=== PATIENT | female | born 1940 | race Caucasian/White ===

== ENCOUNTER 2016-10-19 15:45 | Emergency (ER) | payer OTHER, MEDICARE ==
[2016-10-19 16:23] VITALS: BP 152/94; PULSE 88; TEMP 97.9; BMI 19.0
--- NOTE | 2016-10-19 16:27 | PDOC ---
History of Present Illness - General History Source: Patient Exam Limitations: No Limitations - History of Present Illness Initial Comments: 10/19/16 16:39 Patient is a 76 year old female with a significant past medical history of hypertension, hyperlipidemia, and RHD at 5 years old, who presents to the emergency department complaining of a tick on her left upper arm. Patient states she discovered the tick this morning, which was embedded in her left arm. She states she went to wash her arm, but the tick withdrew itself. She states [place], where she thinks the tick latched on to her. <Néstor Maurer - Last Filed: 10/19/16 16:54> - General History Source: Patient Exam Limitations: No Limitations <Paulina Monteiro - Last Filed: 10/19/16 18:51> - General Chief Complaint: Bite Stated Complaint: TICK BITE LEFT UPPER ARM Time Seen by Provider: 10/19/16 16:17 Past History <Néstor Maurer - Last Filed: 10/19/16 16:54> - Past Medical History HTN: Yes Hypercholesterolemia: Yes Other medical history: FX RIGHT FEMUR - Psycho/Social/Smoking Cessation Hx Anxiety: Yes Suicidal Ideation: No Smoking History: Former smoker Have you smoked in the past 12 months: No Information on smoking cessation initiated: No Hx Alcohol Use: No Drug/Substance Use Hx: No Substance Use Type: None Hx Substance Use Treatment: No <Paulina Monteiro - Last Filed: 10/19/16 18:51> - Past Medical History Allergies/Adverse Reactions: Allergies Allergy/AdvReac Type Severity Reaction Status Date / Time No Known Allergies Allergy Unverified 05/04/16 12:02 Home Medications: Ambulatory Orders Estradiol [Divigel] 0.5 mg TD DAILY 03/25/16 Levomilnacipran HCl [Fetzima] 40 mg PO HS 03/25/16 Acetaminophen [Tylenol .Regular Strength -] 650 mg PO Q6H PRN #0 tablet Docusate Sodium [Colace -] 100 mg PO Q8H PRN #0 capsule 03/29/16 Mag Hydrox/Al Hydrox/Simeth [Mylanta Oral Suspension -] 30 ml PO Q4H PRN #0 cup 03/29/16 Multivitamins [Multivit ([facility] Formulary)] 1 tab PO DAILY tab 03/29/16 Patient's Own Medication [Patient's Own Med (Nf) -] 1 each PO DAILY med Sennosides/Docusate Sodium [Pericolace -] 1 tablet PO BID tablet 03/29/16 Aspirin [Aspirin EC] 81 mg PO DAILY 05/04/16 Temazepam [Restoril] 15 mg PO HS 05/04/16 Atorvastatin Ca [Lipitor] 20 mg PO HS 10/19/16 Diazepam [Valium] 5 mg PO DAILY PRN 10/19/16 Doxycycline Hyclate [Vibramycin -] 100 mg PO BID #20 capsule 10/19/16 Fluconazole [Diflucan -] 150 mg PO ONCE PRN #1 tablet 10/19/16 Melatonin 3 mg PO HS 10/19/16 Nebivolol HCl [Bystolic] 2.5 mg PO HS 10/19/16 Review of Systems - Review of Systems Able to Perform ROS?: Yes Comments:: 10/19/16 16:39 GENERAL/CONSTITUTIONAL: No: fever, chills, weakness, loss of appetite. HEAD, EYES, EARS, NOSE AND THROAT: No: change in vision, ear pain, discharge, sore throat, throat swelling. CARDIOVASCULAR: No: chest pain, lightheadedness, palpitations, syncope RESPIRATORY: No: cough, shortness of breath, wheezing, hemoptysis, stridor. GASTROINTESTINAL: No: nausea, vomiting, abdominal cramping, diarrhea, rectal bleeding, constipation. GENITOURINARY: No: dysuria, hematuria, frequency, urgency, flank pain. MUSCULOSKELETAL: No: back pain, neck pain, joint pain, muscle swelling or pain SKIN AND BREASTS: + Tick on her left upper arm. No: lesions, pallor, easy bruising. NEUROLOGIC: No: headache, vertigo, paresthesias, weakness ENDOCRINE: No: unexplained weight gain or loss HEMATOLOGIC/LYMPHATIC: No: anemia, easy bleeding, swelling nodes <Néstor Maurer - Last Filed: 10/19/16 16:54> *Physical Exam - Vital Signs Last Vital Signs Temp Pulse Resp BP Pulse Ox 97.9 F 88 16 152/94 97 10/19/16 16:05 10/19/16 16:05 10/19/16 16:05 10/19/16 16:05 10/19/16 16:05 - Physical Exam Comments: 10/19/16 16:39 GENERAL: The patient is in no acute distress. HEAD: Normal with no signs of trauma. EYES: PERRLA, EOMI, sclera anicteric, conjunctiva clear. ENT: Ears normal, nares patent, oropharynx clear without exudates. Moist mucous membranes. NECK: Normal range of motion, supple without lymphadenopathy, JVD, or masses. LUNGS: Breath sounds equal, clear to auscultation bilaterally. No wheezes, and no crackles. HEART:Regular rate and rhythm, normal S1 and S2 without murmur, rub or gallop. ABDOMEN: Soft, nontender, normoactive bowel sounds. No guarding, no rebound. EXTREMITIES: Normal range of motion, no edema. No clubbing or cyanosis. No erythema, or tenderness. NEUROLOGICAL: Cranial nerves II through XII grossly intact. Normal speech. No focal neurological deficits. MUSCULOSKELETAL: Back non-tender to palpation, no CVA tenderness SKIN: Warm, Dry, normal turgor, no rashes or lesions noted. <Néstor Maurer - Last Filed: 10/19/16 16:54> - Vital Signs Last Vital Signs Temp Pulse Resp BP Pulse Ox 97.9 F 88 16 152/94 97 10/19/16 16:05 10/19/16 16:05 10/19/16 16:05 10/19/16 16:05 10/19/16 16:05 <Paulina Monteiro - Last Filed: 10/19/16 18:51> Medical Decision Making - Medical Decision Making 10/19/16 16:27 A portion of this note was documented by scribe services under my direction. I have reviewed the details of the note, within reason, and agree with the documentation with the following case summary and management plan written by me. Nursing documentation reviewed and incorporated into medical decision making 10/19/16 18:24 This is a 76 yo F with a history of hypertension, hyperlipidemia, and Rheumatic Heart Disease at age 5 Pt presents to the ER today with a complaint of possible tick bite Pt states she awoke at 3am and noted a raised area on her left upper arm that was pruritic She thought actually it was a skin tag BUt when it moved a bit, she decided to leave it alone Today, she looked at the area and noticed that it actually is a tick The tick was engorged and basically fell off (or was easily removed) Pt brought the tick to the ER for evaluation It appears to be a deer tick Pt can not remember if she had had any pertinent exposures She did walk [facility] [employer] [facility] to the [facility], but this was last week (and she had no symptoms after this) She does sleep with her dog but her dog does not roam off leash [place] It is difficult to estimate the length of time that tick was there Pt has no symptoms at this time She has a local reaction (approximately 1cm in diameter) around the bite 10/19/16 18:25 BAsed on ISDA guidelines, pt can be given Doxy 200mg as a single dose Baseline Lyme Titers drawn Pt will be following up with her PMD on Friday I have asked her to have her PMD re assess the site Will prescribe Diflucan to be taken if needed for candidiasis <Paulina Monteiro - Last Filed: 10/19/16 18:51> *DC/Admit/Observation/Transfer - Attestations Scribe Attestion: 10/19/16 16:40 Documentation prepared by Néstor Maurer, acting as medical front desk coordinator for Paulina Monteiro MD. <Néstor Maurer - Last Filed: 10/19/16 16:54> - Discharge Dispostion Admit: No <Paulina Monteiro - Last Filed: 10/19/16 18:51> Diagnosis at time of Disposition: Tick bite Qualifiers: Encounter type: initial encounter Qualified Code(s): W57.XXXA - Bitten or stung by nonvenomous insect and other nonvenomous arthropods, initial encounter - Discharge Dispostion Disposition: HOME Condition at time of disposition: Good - Prescriptions Prescriptions: Fluconazole [Diflucan -] 150 mg PO ONCE PRN #1 tablet PRN Reason: yeast infection Doxycycline Hyclate [Vibramycin -] 100 mg PO BID #20 capsule - Patient Instructions Printed Discharge Instructions: How to Remove a Tick Additional Instructions: Joao Nguyen Thank you for coming in to the ER today We have given you a preventative dose of doxycycline today I have also given you a prescription for Doxycycline 100 mg twice per day You can start that tomorrow Keep your appointment with your Primary Care Physician on Friday We will have your Lyme Titer results before your appointment Please call for your results You can hop picker the prescription for Diflucan if you develop symptoms of a Yeast Infection Return to the ER for any other concerns or complaints
[2016-10-19] MEDS ORDERED: DOXYCYCLINE HYCLATE 100 MG CAPSULE PO ONE ×2 (16:36→16:49)
== END 2016-10-19 17:29 | disposition home or self-care (01) ==
LOC: FER 15:45
DX: S40.862A Insect bite (nonvenomous) of left upper arm, initial encounter (principal); W57.XXXA Bitten or stung by nonvenomous insect and other nonvenomous arthropods, initial encounter; Y93.9 Activity, unspecified; Y92.89 Other specified places as the place of occurrence of the external cause; I10 Essential (primary) hypertension; E78.5 Hyperlipidemia, unspecified; Z87.891 Personal history of nicotine dependence
CPT/HCPCS: 36415; 86618; 99281-25

== ENCOUNTER 2019-05-20 19:17 | Emergency (ER) | payer OTHER, MEDICARE ==
[2019-05-20 19:24] VITALS: BP 173/102; PULSE 88; TEMP 98.3; BMI 21.4
[2019-05-20 19:40] LABS: EPITHELIAL CELLS FEW /hpf
[2019-05-20] MEDS ORDERED: NITROFURANTOIN MACROCRYSTAL 50 MG CAPSULE (FP) PO SCH (19:45)
--- NOTE | 2019-05-20 19:46 | PDOC ---
Documentation entered by Radha Reynolds SCRIBE, acting as scribe for Wil Cee MD. Wil Cee MD: This documentation has been prepared by the Rodolfo hernandez Brenda, SCRIBE, under my direction and personally reviewed by me in its entirety. I confirm that the documentation accurately reflects all work , treatment, procedures, and medical decision making performed by me. History of Present Illness - General Chief Complaint: Urinary Problem Stated Complaint: FREQUENCY/URGENCY Time Seen by Provider: 05/20/19 19:20 History Source: Patient Exam Limitations: No Limitations - History of Present Illness Initial Comments: 05/20/19 19:45 The patient is a 78 year old female, with a significant PMH of HTN, HLD and TIA who presents to the emergency department with 2-3 weeks of progressively worsening urinary frequency and urgency. Patient reports that her urinary frequency and urgency has been waking her up at night, causing her to feel exhausted during the day. The patient denies chest pain, shortness of breath, headache and dizziness. Denies fever, chills, nausea, vomiting, diarrhea and constipation. Denies dysuria and hematuria. PAST MEDICAL HISTORY: HTN, HLD, and TIA. PAST SURGICAL HISTORY: no significant history reported FAMILY HISTORY: no pertinent history SOCIAL HISTORY: Pt lives with family. Drinks 2 glasses of alcohol per day. General: (+) Feeling tired. No fevers or chills, no weakness, no weight loss HEENT: No change in vision. No sore throat,. No ear pain CardioVascular: No chest pain or shortness of breath Respiratory:No cough, or wheezing. Gastrointestinal: no nausea, vomiting, diarrhea or constipation, No rectal bleeding Genitourinary: (+) Frequency (+) Urgency. No dysuria, hematuria. Musculoskeletal: No joint or muscle pain or swelling Neurologic: No headache, vertigo, dizziness or loss of consciousness Psychiatric: nor depression Skin: No rashes or easy bruising Endocrine: no increased thirst or abnormal weight change Allergic: no skin or latex allergy All other systems reviewed and normal GENERAL: The patient is awake, alert, and fully oriented, in no acute distress. HEAD: Normal with no signs of trauma. EYES: Pupils equal, round and reactive to light, extraocular movements intact, sclera anicteric, conjunctiva clear. EXTREMITIES: Normal range of motion, no edema. NEUROLOGICAL: Normal speech, normal gait. PSYCH: Normal mood, normal affect. SKIN: Warm, Dry, normal turgor, no rashes or lesions noted. This is a 78-year-old female who comes in complaining of frequency and dysuria and increased fatigue. Patient's urine is positive for urinary tract infection. Patient started on Macrobid given first dose here and a prescription. Patient does have a primary care doctor that she can follow-up with. Patient was instructed to call her primary care doctor in the morning and get an appointment for 2 to 3 days at weight if she still is having fatigue she can follow-up with her primary care doctor. Past History - Past Medical History Allergies/Adverse Reactions: Allergies Allergy/AdvReac Type Severity Reaction Status Date / Time No Known Allergies Allergy Unverified 05/04/16 12:02 Home Medications: Ambulatory Orders Estradiol [Divigel] 0.5 mg TD DAILY 03/25/16 Levomilnacipran HCl [Fetzima] 40 mg PO HS 03/25/16 Docusate Sodium [Colace -] 100 mg PO Q8H PRN #0 capsule 03/29/16 Multivitamins [Multivit ([facility] Formulary)] 1 tab PO DAILY tab 03/29/16 Aspirin [Aspirin EC] 81 mg PO DAILY 05/04/16 Atorvastatin Ca [Lipitor] 20 mg PO HS 10/19/16 Diazepam [Valium] 5 mg PO DAILY PRN 10/19/16 Acetaminophen [Tylenol .Regular Strength -] 325 mg PO Q6H PRN 01/24/18 Nitrofurantoin Macrocrystal [Macrodantin] 100 mg PO BID #30 capsule 05/20/19 COPD: No HTN: Yes Hypercholesterolemia: Yes - Psycho Social/Smoking Cessation Hx Smoking History: Unknown if ever smoked Have you smoked in the past 12 months: No Information on smoking cessation initiated: No Hx Alcohol Use: Yes (2 GLASSES PER DAY) Drug/Substance Use Hx: No Substance Use Type: None Hx Substance Use Treatment: No *Physical Exam - Vital Signs Last Vital Signs Temp Pulse Resp BP Pulse Ox 98.3 F 88 18 173/102 H 98 05/20/19 19:18 05/20/19 19:18 05/20/19 19:18 05/20/19 19:18 05/20/19 19:18 ED Treatment Course - ADDITIONAL ORDERS Additional order review: Laboratory Results 05/20/19 19:15 Urine Color Yellow Urine Appearance Clear Urine pH 5.5 Urine Protein Negative Urine Glucose (UA) Negative Urine Ketones Trace Urine Blood Trace-intact Urine Nitrite Negative Urine Bilirubin 1+ H Urine Urobilinogen 0.2 Ur Leukocyte Esterase 2+ Urine RBC 0-2 Urine WBC 2-5 Ur Transition Epith Cell Few Urine Bacteria Few Discharge - Discharge Information Problems reviewed: Yes Clinical Impression/Diagnosis: Cystitis Condition: Stable - Admission No - Additional Discharge Information Prescriptions: Nitrofurantoin Macrocrystal [Macrodantin] 100 mg PO BID #30 capsule - Follow up/Referral Referrals: Gadiel Cage MD [Primary Care Provider] - - Patient Discharge Instructions Additional Instructions: Your urine shows that you have an infection in your urine for which she will need to take antibiotics.. Take Macrobid 1 tablet twice a day for 10 days Return to the emergency department immediately with ANY new, persistent or worsening symptoms. Continue any medications as previously prescribed by your physician. You should follow up with your primary doctor as soon as possible regarding today's emergency department visit. . Please make sure your doctor reviews the results of your emergency evaluation. Thank you for coming to the Emergency Department today for your care. It was a pleasure to see you today. Please note that your evaluation is INCOMPLETE until you follow-up with your doctor. - Post Discharge Activity
[2019-05-20] MEDS ORDERED: NITROFURANTOIN MACROCRYSTAL 50 MG CAPSULE (FP) ONE (19:48)
== END 2019-05-20 20:03 | disposition home or self-care (01) ==
LOC: FER 19:17
DX: N30.00 Acute cystitis without hematuria (principal); I10 Essential (primary) hypertension; E78.5 Hyperlipidemia, unspecified; Z86.73 Personal history of transient ischemic attack (TIA), and cerebral infarction without residual deficits; Z79.82 Long term (current) use of aspirin
CPT/HCPCS: 81003; 81015; 87086; 99282-25

== ENCOUNTER 2019-05-31 19:56 | Emergency (ER) | payer OTHER, MEDICARE ==
[2019-05-31 20:15] VITALS: BP 183/91; PULSE 87; TEMP 99; BMI 21.1
--- NOTE | 2019-05-31 22:34 | PDOC ---
Documentation entered by Kusum Davis SCRIBE, acting as scribe for Manuel Cook MD. Manuel Cook MD: This documentation has been prepared by the Ryan hernandez Aiswarya, SCRIBE, under my direction and personally reviewed by me in its entirety. I confirm that the documentation accurately reflects all work, treatment, procedures, and medical decision making performed by me. History of Present Illness - General Chief Complaint: Altered Mental Status Stated Complaint: CONFUSION SINCE 05/20/2019 History Source: Patient Exam Limitations: No Limitations - History of Present Illness Initial Comments: 05/31/19 20:22 The patient is a 78 year old female, with a significant PMH of HTN and HLD, who presents to the emergency department with increased altered mental status that began May.20 and progressively worsened today. The patient states she came in May.20 secondary to confusion. She was diagnosed with a urinary infection and was prescribed macrobids. Patient states confusion progressively increased since then. The patient denies chest pain, shortness of breath, headache and dizziness. Denies fever, chills, nausea, vomit, diarrhea and constipation. Denies dysuria, frequency, urgency and hematuria. Allergies: NKDA Past surgical history: None reported Social history: Denies smoking PCP: Gadiel Cage Past History - Past Medical History Allergies/Adverse Reactions: Allergies Allergy/AdvReac Type Severity Reaction Status Date / Time No Known Allergies Allergy Verified 05/31/19 19:58 Home Medications: Ambulatory Orders Estradiol [Divigel] 0.5 mg TD DAILY 03/25/16 Levomilnacipran HCl [Fetzima] 40 mg PO HS 03/25/16 Multivitamins [Multivit ([facility] Formulary)] 1 tab PO DAILY tab 03/29/16 Aspirin [Aspirin EC] 81 mg PO DAILY 05/04/16 Diazepam [Valium] 5 mg PO DAILY PRN 10/19/16 Acetaminophen [Tylenol .Regular Strength -] 325 mg PO Q6H PRN 01/24/18 Nitrofurantoin Macrocrystal [Macrodantin] 100 mg PO BID #30 capsule 05/20/19 COPD: No HTN: Yes Hypercholesterolemia: Yes - Psycho Social/Smoking Cessation Hx Smoking History: Unknown if ever smoked Have you smoked in the past 12 months: No Hx Alcohol Use: Yes (2 GLASSES PER DAY) Drug/Substance Use Hx: No Substance Use Type: None Hx Substance Use Treatment: No Review of Systems - Review of Systems Able to Perform ROS?: Yes Comments:: 05/31/19 20:22 GENERAL/CONSTITUTIONAL: No fever or chills. No weakness. HEAD, EYES, EARS, NOSE AND THROAT: No change in vision. No ear pain or discharge. No sore throat. CARDIOVASCULAR: No chest pain or shortness of breath. RESPIRATORY: No cough, wheezing, or hemoptysis. GASTROINTESTINAL: No nausea, vomiting, diarrhea or constipation. GENITOURINARY: No dysuria, frequency, or change in urination. MUSCULOSKELETAL: No joint or muscle swelling or pain. No neck or back pain. SKIN: No rash NEUROLOGIC: +confusion. No headache, vertigo, loss of consciousness, or change in strength/sensation. ENDOCRINE: No increased thirst. No abnormal weight change. HEMATOLOGIC/LYMPHATIC: No anemia, easy bleeding, or history of blood clots. ALLERGIC/IMMUNOLOGIC: No hives or skin allergy. *Physical Exam - Vital Signs Last Vital Signs Temp Pulse Resp BP Pulse Ox 99 F 87 16 183/91 H 100 05/31/19 20:08 05/31/19 20:08 05/31/19 20:08 05/31/19 20:08 05/31/19 20:08 - Physical Exam Comments: 05/31/19 20:23 GENERAL: Awake, alert, and fully oriented, in no acute distress HEAD: No signs of trauma LUNGS: Breath sounds equal, clear to auscultation bilaterally. No wheezes, and no crackles HEART: Regular rate and rhythm, normal S1 and S2, no murmurs, rubs or gallops ABDOMEN: Soft, nontender, normoactive bowel sounds. No guarding, no rebound. No masses EXTREMITIES: Normal range of motion, no edema. No clubbing or cyanosis. No cords, erythema, or tenderness NEUROLOGICAL: +Left facial droop. Mild unsteady gait (history of hip fracture). 3/3 words in 5 mins. AOX3. SKIN: Warm, Dry, normal turgor, no rashes or lesions noted. ED Treatment Course - RADIOLOGY Radiology Studies Ordered: Category Date Time Status HEAD CT WITHOUT CONTRAST [CT] Stat CT Scan 05/31/19 20:09 Completed Medical Decision Making - Medical Decision Making 06/01/19 07:20 has she had a stroke sometime in the last two weeks? Ct here without acute findings continue [facility] out[facility] Discharge - Discharge Information Problems reviewed: Yes Clinical Impression/Diagnosis: Mental status change Condition: Stable Disposition: HOME - Follow up/Referral Referrals: Manuel Arthur MD [Staff Physician] - Call tomorrow - Patient Discharge Instructions Patient Printed Discharge Instructions: Vascular Dementia - Post Discharge Activity
== END 2019-05-31 21:06 | disposition home or self-care (01) ==
LOC: FER 19:56
DX: R41.82 Altered mental status, unspecified (principal); E78.5 Hyperlipidemia, unspecified
CPT/HCPCS: 70450-TC; 99281-25

== ENCOUNTER 2019-06-04 13:49 | Emergency (ER) | payer OTHER, MEDICARE ==
[2019-06-04 15:33] LABS: BASO % 1.4 % (0-2.0); EOS % 1.8 % (0-4.5); HEMATOCRIT 39.3 % (32.4-45.2); HEMOGLOBIN 12.9 GM/dl (10.7-15.3); LYMPH % 12.7 % (8-40); MCHC 32.9 g/dl (32.0-36.0); MEAN PLT VOLUME 7.9 fl (7.5-11.1); MONO % 7.1 % (3.8-10.2); PLATELET COUNT 206 K/MM3 (134-434); RBC 4.32 M/mm3 (3.60-5.2); RDW 12.8 % (11.6-15.6); WHITE BLOOD COUNT 7.6 K/mm3 (4.0-10.8)
[2019-06-04 15:57] LABS: EPITHELIAL CELLS FEW /hpf
--- NOTE | 2019-06-04 16:18 | PDOC ---
Documentation entered by Romi Reynolds SCRIBE, acting as scribe for Kervin Donnelly MD. Kervin Donnelly MD: This documentation has been prepared by the Rodolfo hernandez Adrianna, SCRIBE, under my direction and personally reviewed by me in its entirety. I confirm that the documentation accurately reflects all work, treatment, procedures, and medical decision making performed by me. History of Present Illness - General Chief Complaint: Respiratory Stated Complaint: Cough x1 week Time Seen by Provider: 06/04/19 13:59 - History of Present Illness Initial Comments: The patient is a 78 year old female, with a significant PMH of HTN and HLD, who presents to the ED for evaluation of lethargy, dysuria, and cough for one week. Patient was seen in the ED one week ago for AMS, and was found to have a UTI. She notes no change in her symptoms since her discharge. Patient reports feeling lethargic, unsteady, and forgetful. She endorses diffuse body aches and pains. Patient reports mild dysuria, which is unchanged from her previous ED visit. She additionally reports dry cough, runny nose, sore throat, although she denies any sick contacts at home. Denies fever, chills, chest pain, SOB, vomit, hematuria, abdominal pain, recent travel, blurred vision, doubled-vision, or headache. Allergies: NKA, NKDA Past surgical history: x2 c-sections, renal artery stenosis repair Social history: 2 glasses of wine a day. Denies tobacco or illicit drug use PCP: Dr. Gadiel Cage Past History - Past Medical History Allergies/Adverse Reactions: Allergies Allergy/AdvReac Type Severity Reaction Status Date / Time No Known Allergies Allergy Verified 05/31/19 19:58 Home Medications: Ambulatory Orders Estradiol [Divigel] 0.5 mg TD DAILY 03/25/16 Levomilnacipran HCl [Fetzima] 40 mg PO HS 03/25/16 Multivitamins [Multivit ([facility] Formul[facility])] 1 tab PO DAILY tab 03/29/16 Aspirin [Aspirin EC] 81 mg PO DAILY 05/04/16 Diazepam [Valium] 5 mg PO DAILY PRN 10/19/16 Acetaminophen [Tylenol .Regular Strength -] 325 mg PO Q6H PRN 01/24/18 Azithromycin [Zithromax -] 250 mg PO DAILY #4 tab 06/04/19 COPD: No HTN: Yes Hypercholesterolemia: Yes - Psycho Social/Smoking Cessation Hx Smoking History: Former smoker Have you smoked in the past 12 months: No If you are a former smoker, when did you quit?: 1996 Information on smoking cessation initiated: No Hx Alcohol Use: No Drug/Substance Use Hx: No Substance Use Type: None Hx Substance Use Treatment: No Review of Systems - Review of Systems Comments:: Constitutional - +Lethargic. Pt denies Fever, Chills. HEENT: +runny nose. +sore throat. denies vision changes Respiratory: +dry cough. Denies sob, hemoptysis Cardiac: denies chest pain, palpitations, lightheadedness, leg swelling Abd/GI: denies abd pain, nausea, vomiting, blood per rectum, melena, diarrhea : +mild dysuria. denies frequency, discharge Musculoskeletal - +diffuse body aches and pains. skin - denies bruising, erythema, rash neurological: +Unsteady gait. +Forgetful. denies headache, numbness, tingling, ataxia. hematologic: denies anemia, easy bruising, easy bleeding *Physical Exam - Vital Signs Last Vital Signs Temp Pulse Resp BP Pulse Ox 99.3 F 89 95 H 102/60 95 06/04/19 14:09 06/04/19 14:09 06/04/19 14:09 06/04/19 14:09 06/04/19 14:09 - Physical Exam Comments: GENERAL: The patient is awake, alert, and fully oriented, Nontoxic - in no acute distress. HEAD: Normocephalic, atraumatic. EYES: extraocular movements intact, sclera anicteric, conjunctiva clear. ENT: Normal voice, Moist mucous membranes. NECK: Normal range of motion, supple without lymphadenopathy, JVD, or masses. LUNGS: Breath sounds equal, clear to auscultation bilaterally. No wheezes, no crackles, no rales. HEART: Regular rate and rhythm, normal S1 and S2 without murmur, rub or gallop. ABDOMEN: Soft, nontender, normoactive bowel sounds. No guarding, no rebound. No masses. EXTREMITIES: Normal range of motion, no edema. No clubbing or cyanosis. No cords, erythema, or tenderness. NEUROLOGICAL: No facial asymmetry, Normal speech. PSYCH: Normal mood, normal affect. SKIN: Warm, Dry, normal turgor, no rashes or lesions noted. Heart Score/ECG Review - ECG Impressions Comment:: 06/04/19 18:12 Twelve-lead EKG was performed and reviewed by me. There is normal sinus rhythm with a normal rate. Rate of 75 The axis is normal. The intervals are normal. There is normal R wave progression There are no ST or T wave abnormalities. PAC present ED Treatment Course - LABORATORY CBC & Chemistry Diagram: 06/04/19 15:15 06/04/19 16:00 - RADIOLOGY Radiology Studies Ordered: Category Date Time Status CHEST PA & LAT [RAD] Stat Radiology 06/04/19 14:50 Ordered Radiograph Interpretation: EXAM#: TYPE/EXAM: RESULT: [id number] RAD/CHEST PA LAT Chest: Pneumonia 2 views of the chest reveal a large heart, unfolded aorta, scoliosis with no major compressive changes, blunted right angle and some questionable atelectasis at the right base. There is a right upper lobe granuloma. There is some apical pleural thickening. Since the prior study of 03/29/2016, the blunted right angle and atelectatic change at the right base has developed. Reported By: Freddy Rubio MD 06/04/19 16:02 Medical Decision Making - Medical Decision Making 06/04/19 14:51 78-year-old female history of hypertension, hyperlipidemia, Renal artery stenosis status post repair Resents with complaint of malaise, fatigue, mild cough. She was recently seen in the ER and treated for a UTI however endorses no improvement of symptoms. She denies any fever, chills, abdominal pain, chest pain, shortness of breath. On exam the patient is no acute distress however she does seem worn out No focal findings on exam Differential for the patient's symptoms includes possible pneumonia, influenza, UTI, Metabolic derangements, ACS Will obtain a blood work, cxr, will give the patient fluids will reassess 06/04/19 17:11 Patient's blood work was reviewed is unremarkable The patient's chest x-ray reveals atelectasis versus infiltrate in the right lower lobe, due to the patient's persistent cough we will give the patient a Z- True. Discharge - Discharge Information Problems reviewed: Yes Clinical Impression/Diagnosis: Cough, Malaise Condition: Improved Disposition: HOME - Admission No - Additional Discharge Information Prescriptions: Azithromycin [Zithromax -] 250 mg PO DAILY #4 tab - Follow up/Referral Referrals: Gadiel Cage MD [Primary Care Provider] - - Patient Discharge Instructions Patient Printed Discharge Instructions: DI for Pneumonia -- Adult Additional Instructions: Return to the emergency department immediately with ANY new, persistent or worsening symptoms. Continue taking the antibiotics as prescribed Make sure you are getting sufficient rest and eating/drinking regularly. You MUST call and follow up with your doctor in 3-4 days for further evaluation of your symptoms. Results were discussed with you. Please make sure your doctor reviews the results of your emergency evaluation. Your Emergency Department visit is not complete without a follow up with your doctor. Print Language: LIBYAN - Post Discharge Activity
[2019-06-04] MEDS ORDERED: SODIUM CHLORIDE 1,000 ML IV ONE (16:26)
[2019-06-04 16:29] LABS: ALBUMIN 3.1 g/dl (3.4-5.0); BILIRUBIN,TOTAL 0.9 mg/dl (0.2-1); CALCIUM 8.4 mg/dl (8.5-10); CREATININE 0.6 mg/dl (0.55-1.3); POTASSIUM 4.4 mmol/L (3.5-5.1); TOT PROT 6.2 g/dl (6.4-8.2)
[2019-06-04] MEDS ORDERED: AZITHROMYCIN 250 MG TABLET PO ONE (17:42)
[2019-06-04] MEDS ORDERED: AZITHROMYCIN 500 MG TABLET ONE (17:51)
[2019-06-04 18:01] VITALS: BP 159/96; PULSE 76; TEMP 98.1; BMI 2558.1
--- NOTE | 2019-06-05 17:52 | EKG ---
Test Reason : Blood Pressure : / mmHG Vent. Rate : 075 BPM Atrial Rate : 075 BPM P-R Int : 160 ms QRS Dur : 092 ms QT Int : 390 ms P-R-T Axes : 050 -07 050 degrees QTc Int : 435 ms SINUS RHYTHM WITH PREMATURE ATRIAL COMPLEXES OTHERWISE NORMAL ECG WHEN COMPARED WITH ECG OF 24-JAN-2018 13:19, PREMATURE ATRIAL COMPLEXES ARE NOW PRESENT Confirmed by MD Heaven, Jose Francisco ([id number]) on 06/05/2019 5:52:01 PM Referred By: MD ROJAS Confirmed By:Jose Francisco Collado MD
== END 2019-06-04 18:34 | disposition home or self-care (01) ==
LOC: FER 13:49 → SUPCPDRO 13:49 → FER 18:34
PROC: 3E0337Z Introduction of Electrolytic and Water Balance Substance into Peripheral Vein, Percutaneous Approach (ICD-10-PCS; principal; 2019-06-04)
DX: R05 Cough (principal); R53.81 Other malaise; I10 Essential (primary) hypertension; E78.5 Hyperlipidemia, unspecified; Z79.82 Long term (current) use of aspirin; Z87.891 Personal history of nicotine dependence
CPT/HCPCS: 36415; 71046-TC-FY; 80053; 81003; 81015; 82550; 84484; 85025; 87086; 87804; 93005; 96360; 99283-25; J7030

== ENCOUNTER 2019-06-16 14:42 | Emergency (ER) | payer OTHER, MEDICARE ==
--- NOTE | 2019-06-16 14:44 | PDOC ---
History of Present Illness - General Chief Complaint: Urinary Problem Stated Complaint: URINARY URGENCY, WEAKNESS Time Seen by Provider: 06/16/19 14:44 History Source: Patient Exam Limitations: No Limitations Past History - Past Medical History Allergies/Adverse Reactions: Allergies Allergy/AdvReac Type Severity Reaction Status Date / Time No Known Allergies Allergy Verified 05/31/19 19:58 Home Medications: Ambulatory Orders Estradiol [Divigel] 0.5 mg TD DAILY 03/25/16 Levomilnacipran HCl [Fetzima] 40 mg PO HS 03/25/16 Multivitamins [Multivit ([facility] Form[facility])] 1 tab PO DAILY tab 03/29/16 Aspirin [Aspirin EC] 81 mg PO DAILY 05/04/16 Diazepam [Valium] 5 mg PO DAILY PRN 10/19/16 Acetaminophen [Tylenol .Regular Strength -] 325 mg PO Q6H PRN 01/24/18 Azithromycin [Zithromax -] 250 mg PO DAILY #4 tab 06/04/19 COPD: No HTN: Yes Hypercholesterolemia: Yes - Psycho Social/Smoking Cessation Hx Smoking History: Former smoker Have you smoked in the past 12 months: No If you are a former smoker, when did you quit?: 1996 Hx Alcohol Use: No Drug/Substance Use Hx: No Substance Use Type: None Hx Substance Use Treatment: No Discharge - Discharge Information Condition: Stable - Follow up/Referral Referrals: Gadiel Cage MD [Primary Care Provider] - - Patient Discharge Instructions - Post Discharge Activity
[2019-06-16 15:00] VITALS: BMI 21.1
[2019-06-16 15:09] VITALS: BP 136/92; PULSE 75; TEMP 98.3
[2019-06-16 15:11] LABS: EPITHELIAL CELLS FEW /hpf
--- NOTE | 2019-06-16 16:03 | PDOC ---
History of Present Illness - General Chief Complaint: Urinary Problem Stated Complaint: URINARY URGENCY, WEAKNESS Time Seen by Provider: 06/16/19 14:44 - History of Present Illness Initial Comments: 06/16/19 16:05 79 F with h/o HTN, HLD presenting to ED with dysuria, and 1 day of increasing forgetfulness. Pt states that she has been having recurrent UTIs since the beginning of this year. During these episodes, she experiences increased confusion, which resolves when she gets treated with abx. Pt was recently seen here twice for similar episodes and prescribed antibiotics, which she states helped. Per , pt has been in her usual state of health until this morning , when she began to feel very forgetful. Pt also endorses one day of dysuria. Denies F/C. Denies TORRES/N/V. Denies CP/SOB. Denies abdominal pain. Pt states that she feels like she is having another UTI. Past History - Past Medical History Allergies/Adverse Reactions: Allergies Allergy/AdvReac Type Severity Reaction Status Date / Time No Known Allergies Allergy Verified 05/31/19 19:58 Home Medications: Ambulatory Orders RX: Estradiol [Divigel] 0.5 mg TD DAILY 03/25/16 RX: Levomilnacipran HCl [Fetzima] 40 mg PO HS 03/25/16 RX: Multivitamins [Multivit ([facility])] 1 tab PO DAILY tab 03/29/16 Aspirin [Aspirin EC] 81 mg PO DAILY 05/04/16 Diazepam [Valium] 5 mg PO DAILY PRN 10/19/16 RX: Acetaminophen [Tylenol .Regular Strength -] 325 mg PO Q6H PRN 01/24/18 Azithromycin [Zithromax -] 250 mg PO DAILY #4 tab 06/04/19 Cephalexin [Keflex] 500 mg PO BID #14 capsule 06/16/19 Sorbitol/Saliva 1/Malic/C.phos [Numoisyn Lozenge] 0.3 gm MM TID PRN #30 lozenge 06/16/19 COPD: No HTN: Yes Hypercholesterolemia: Yes - Psycho Social/Smoking Cessation Hx Smoking History: Former smoker Have you smoked in the past 12 months: No If you are a former smoker, when did you quit?: 1996 Information on smoking cessation initiated: No Hx Alcohol Use: No Drug/Substance Use Hx: No Substance Use Type: None Hx Substance Use Treatment: No Review of Systems - Review of Systems Comments:: 06/16/19 16:08 "GENERAL/CONSTITUTIONAL: No fever or chills. No weakness. HEAD, EYES, EARS, NOSE AND THROAT: No change in vision. No ear pain or discharge. No sore throat. CARDIOVASCULAR: No chest pain, no shortness of breath, no loss of consciousness RESPIRATORY: No cough, wheezing, or hemoptysis. GASTROINTESTINAL: No nausea, vomiting, diarrhea or constipation. GENITOURINARY: + dysuria, no frequency, or change in urination. MUSCULOSKELETAL: No joint or muscle swelling or pain. No neck or back pain. SKIN: No rash NEUROLOGIC: No vertigo, no change in strength/sensation. ENDOCRINE: No increased thirst. No abnormal weight change. HEMATOLOGIC/LYMPHATIC: No anemia, easy bleeding, or history of blood clots. ALLERGIC/IMMUNOLOGIC: No hives or skin allergy. *Physical Exam - Vital Signs Last Vital Signs Temp Pulse Resp BP Pulse Ox 98.3 F 75 18 136/92 99 06/16/19 14:43 06/16/19 14:43 06/16/19 14:43 06/16/19 14:43 06/16/19 14:43 - Physical Exam 06/16/19 16:09 "GENERAL: Awake, alert, and fully oriented, in no acute distress. HEAD: No signs of trauma EYES: PERRLA, EOMI, sclera anicteric, conjunctiva clear ENT: Auricles normal inspection, hearing grossly normal, nares patent, oropharynx clear without exudates. Moist mucosa NECK: Nontender, no stepoffs, Normal ROM, supple, no lymphadenopathy, JVD, or masses LUNGS: Breath sounds equal, clear to auscultation bilaterally. No wheezes, and no crackles HEART: Regular rate and rhythm, normal S1 and S2, no murmurs, rubs or gallops ABDOMEN: Soft, nontender, normoactive bowel sounds. No guarding, no rebound. No masses EXTREMITIES: Normal range of motion, no edema. No clubbing or cyanosis. No cords, erythema, or tenderness NEUROLOGICAL: Cranial nerves II through XII intact. 5/5 strength and sensation in all extremities, Normal speech, normal gait, normal cerebellar function SKIN: Warm, Dry, normal turgor, no rashes or lesions noted. ED Treatment Course - ADDITIONAL ORDERS Additional order review: Laboratory Results 06/16/19 14:55 Urine Color Yellow Urine Appearance Clear Urine pH 7.0 Urine Protein Negative Urine Glucose (UA) Negative Urine Ketones Negative Urine Blood Trace-intact Urine Nitrite Negative Urine Bilirubin Negative Urine Urobilinogen 0.2 Ur Leukocyte Esterase 2+ Urine RBC 2-5 Urine WBC 40-60 Ur Transition Epith Cell Few Urine Bacteria Many Medical Decision Making - Medical Decision Making 06/16/19 16:09 79 F with dysuria and increased forgetfulness x 1 day. Suspect UTI. Pt is very well appearing with normal vitals. No evidence of significant systemic illness. No neuro deficits to suggest CVA. Pt is currently AnOx4. No evidence of delirium on exam. - UA, UCx 06/16/19 16:12 UA consistent with UTI Will tx with keflex Pt is well appearing, with normal vitals. Clinically stable for DC at this time , to be accompanied home by . I discussed the physical exam findings, ancillary test results and final diagnoses with the patient. I answered all of the patient's questions. The patient was satisfied with the care received and felt comfortable with the discharge plan and treatment plan. The patient agrees to follow up with the primary care physician within 24-72 hours. Discharge - Discharge Information Problems reviewed: Yes Clinical Impression/Diagnosis: UTI (urinary tract infection), Forgetfulness, Dysuria Condition: Stable Disposition: HOME - Additional Discharge Information Prescriptions: Cephalexin [Keflex] 500 mg PO BID #14 capsule Sorbitol/Saliva 1/Malic/C.phos [Numoisyn Lozenge] 0.3 gm MM TID PRN #30 lozenge PRN Reason: dry mouth - Follow up/Referral Referrals: Gadiel Cage MD [Primary Care Provider] - Joe Lott MD [Staff Physician] - - Patient Discharge Instructions Patient Printed Discharge Instructions: Delirium, DI for Urinary Tract Infection (UTI) Additional Instructions: Take the Keflex as prescribed to treat your urine infection. If you at any point experience worsening confusion, abdominal pain, fevers, or any other concerning symptoms, return to the ER immediately. Otherwise, follow up with your primary doctor within 1 week for re-evaluation. You should also see a urologist for further evaluation of your frequent urinary tract infections. Call the number provided to make an appointment. - Post Discharge Activity
== END 2019-06-16 16:20 | disposition home or self-care (01) ==
LOC: FER 14:42
DX: R41.3 Other amnesia (principal); N39.0 Urinary tract infection, site not specified; R30.0 Dysuria; Z87.891 Personal history of nicotine dependence
CPT/HCPCS: 81003; 81015; 87086; 87186; 99282-25

== ENCOUNTER 2019-06-25 15:19 | Emergency (ER) | payer OTHER, MEDICARE ==
[2019-06-25 15:40] VITALS: BP 173/101; PULSE 88; TEMP 98.5; BMI 21.1
[2019-06-25 16:02] LABS: EPITHELIAL CELLS FEW /hpf
[2019-06-25] MEDS ORDERED: SULFAMETHOXAZOLE/TRIMETHOPRIM 800MG/160MG D.S. TABLET PO ONE (17:34)
[2019-06-25] MEDS ORDERED: PHENAZOPYRIDINE HCL 100 MG TABLET (FP) PO ONE (17:34)
[2019-06-25] MEDS ORDERED: SULFAMETHOXAZOLE/TRIMETHOPRIM 800MG/160MG D.S. TABLET ONE (17:37)
[2019-06-25] MEDS ORDERED: PHENAZOPYRIDINE HCL 100 MG TABLET (FP) ONE (17:38)
--- NOTE | 2019-06-25 18:19 | PDOC ---
Documentation entered by Kusum Davis SCRIBE, acting as scribe for Manuel Cook MD. Manuel oCok MD: This documentation has been prepared by the Ryan hernandez Aiswarya, SCRIBE, under my direction and personally reviewed by me in its entirety. I confirm that the documentation accurately reflects all work, treatment, procedures, and medical decision making performed by me. History of Present Illness - General Chief Complaint: Urinary Problem Stated Complaint: " I HAVE UTI" History Source: Patient Exam Limitations: No Limitations - History of Present Illness Initial Comments: 06/25/19 16:18 The patient is a 79 year old female, with a significant PMH of HTN and HLD, who presents to the emergency department with urinary frequency and urgency. The patient states she endorses associated symptoms of mild lower back pain and white vaginal discharge, no relief with nitrofurantoin. She states her PCP refuses to treat her and came to the ER for further evaluation of her symptoms. The patient denies chest pain, shortness of breath, headache and dizziness. Denies fever, chills, nausea, vomiting, diarrhea and constipation. Denies dysuria and hematuria. Allergies: NKDA Past surgical history: None reported Social history: None reported PCP: Gadiel Cage Past History - Past Medical History Allergies/Adverse Reactions: Allergies Allergy/AdvReac Type Severity Reaction Status Date / Time No Known Allergies Allergy Verified 05/31/19 19:58 Home Medications: Ambulatory Orders Estradiol [Divigel] 0.5 mg TD DAILY 03/25/16 Levomilnacipran HCl [Fetzima] 40 mg PO HS 03/25/16 Multivitamins [Multivit ([facility])] 1 tab PO DAILY tab 03/29/16 Aspirin [Aspirin EC] 81 mg PO DAILY 05/04/16 Diazepam [Valium] 5 mg PO DAILY PRN 10/19/16 Acetaminophen [Tylenol .Regular Strength -] 325 mg PO Q6H PRN 01/24/18 Azithromycin [Zithromax -] 250 mg PO DAILY #4 tab 06/04/19 Sorbitol/Saliva 1/Malic/C.phos [Numoisyn Lozenge] 0.3 gm MM TID PRN #30 lozenge 06/16/19 Nitrofurantoin Monohyd/M-Cryst [Macrobid -] 100 mg PO BID #14 capsule 06/20/19 Phenazopyridine HCl [Pyridium] 200 mg PO TID #5 tablet 06/25/19 Sulfamethoxazole/Trimethoprim [Bactrim Ds -] 1 tab PO DAILY #5 tablet 06/25/19 COPD: No HTN: Yes Hypercholesterolemia: Yes - Psycho Social/Smoking Cessation Hx Smoking History: Former smoker Have you smoked in the past 12 months: No If you are a former smoker, when did you quit?: 1996 Hx Alcohol Use: No Drug/Substance Use Hx: No Substance Use Type: None Hx Substance Use Treatment: No Review of Systems - Review of Systems Able to Perform ROS?: Yes Comments:: 06/25/19 16:18 GENERAL/CONSTITUTIONAL: No fever or chills. No weakness. HEAD, EYES, EARS, NOSE AND THROAT: No change in vision. No ear pain or discharge. No sore throat. CARDIOVASCULAR: No chest pain or shortness of breath. RESPIRATORY: No cough, wheezing, or hemoptysis. GASTROINTESTINAL: No nausea, vomiting, diarrhea or constipation. GENITOURINARY:+urinary frequency and urgency. +vaginal discharge MUSCULOSKELETAL: +lower back pain. No neck. SKIN: No rash NEUROLOGIC: No headache, vertigo, loss of consciousness, or change in strength/ sensation. ENDOCRINE: No increased thirst. No abnormal weight change. HEMATOLOGIC/LYMPHATIC: No anemia, easy bleeding, or history of blood clots. ALLERGIC/IMMUNOLOGIC: No hives or skin allergy. *Physical Exam - Vital Signs Last Vital Signs Temp Pulse Resp BP Pulse Ox 98.5 F 88 18 173/101 H 97 06/25/19 15:20 06/25/19 15:20 06/25/19 15:20 06/25/19 15:20 06/25/19 15:20 - Physical Exam 06/25/19 16:55 GENERAL: Awake, alert, and fully oriented, in no acute distress HEART: Regular rate and rhythm, normal S1 and S2, no murmurs, rubs or gallops ABDOMEN: Soft, nontender, normoactive bowel sounds. No guarding, no rebound. No masses VAGINAL:+scant white vaginal discharge. EXTREMITIES: Normal range of motion, no edema. No clubbing or cyanosis. No cords, erythema, or tenderness NEUROLOGICAL: Cranial nerves II through XII grossly intact. Normal speech. SKIN: Warm, Dry, normal turgor, no rashes or lesions noted. ED Treatment Course - ADDITIONAL ORDERS Additional order review: Laboratory Results 06/25/19 15:30 Urine Color Yellow Urine Appearance Clear Urine pH 6.0 Urine Protein Negative Urine Glucose (UA) Negative Urine Ketones 2+ H Urine Blood Trace-intact Urine Nitrite Negative Urine Bilirubin Negative Urine Urobilinogen 0.2 Ur Leukocyte Esterase Trace H Urine RBC 0-2 Urine WBC 0-2 Ur Transition Epith Cell Few Medical Decision Making - Medical Decision Making 06/25/19 18:20 persistent dysuria without clear pathology on PE ucx cover with abx, pyridium fu Discharge - Discharge Information Problems reviewed: Yes Clinical Impression/Diagnosis: Dysuria Condition: Stable Disposition: HOME - Additional Discharge Information Prescriptions: Phenazopyridine HCl [Pyridium] 200 mg PO TID #5 tablet Sulfamethoxazole/Trimethoprim [Bactrim Ds -] 1 tab PO DAILY #5 tablet - Follow up/Referral Referrals: Joe Lott MD [Staff Physician] - Call tomorrow - Patient Discharge Instructions Additional Instructions: Please call for the results of your culture in 2 days: [phone] - Post Discharge Activity
== END 2019-06-25 17:48 | disposition home or self-care (01) ==
LOC: FER 15:19
DX: R30.0 Dysuria (principal); I10 Essential (primary) hypertension; E78.5 Hyperlipidemia, unspecified; Z87.891 Personal history of nicotine dependence
CPT/HCPCS: 81003; 81015; 87086; 99282-25

== ENCOUNTER 2019-08-04 12:23 | Emergency (ER) | payer OTHER, MEDICARE ==
[2019-08-04 12:37] VITALS: TEMP 98.6; BMI 20.1
--- NOTE | 2019-08-04 12:57 | PDOC ---
History of Present Illness - General Chief Complaint: Bite Stated Complaint: BIT ON RIGHT RING FINGER BY MOUSE Time Seen by Provider: 08/04/19 12:42 - History of Present Illness Initial Comments: 08/04/19 12:59 Chief complaint: Bitten by mouse HPI: Patient found a mouse in bag of dog food, picked it up to bring it outside , and was bitten on the left fourth finger, distal pulp. Mild pain at the site. No bleeding. Review of systems: No other bites, scratches, or other injuries. No fever/ chills, headache, URI symptoms, sore throat, cough, chest pain, shortness of breath, abdominal pain, nausea, vomiting, diarrhea, urinary tract symptoms, vaginal bleeding or discharge. No visual or focal neurologic symptoms. Remainder of systems reviewed and negative Past medical history: Mood disorder, otherwise healthy. Social/family history reviewed and noncontributory Physical exam: Alert and oriented no acute distress cheerful and cooperative Afebrile, vital signs normal except for mildly elevated blood pressure, probably the result of the unusual events today HEENT normal Neck supple without bruit mass or nodes Chest clear CV regular without murmur rub or gallop Abdomen benign Extremities: No wound of note could be visualized or palpated at the site of injury. However, patient had mild pain with compression of the distal pulp. Impression: Superficial bite injury from mouse, no concern for rabies as per health department guidelines Plan: Wound was scrubbed with soapy water, then rinsed and irrigated with saline , dried and dressed with bacitracin. Patient was advised that if there was any sign of infection she should return immediately to the ER for further treatment otherwise follow-up primary physician. Fully ambulatory in no distress at discharge. Past History - Past Medical History Allergies/Adverse Reactions: Allergies Allergy/AdvReac Type Severity Reaction Status Date / Time aspirin Allergy Intermediate Hives Verified 08/04/19 12:26 Home Medications: Ambulatory Orders Estradiol [Divigel] 0.5 mg TD DAILY 03/25/16 Levomilnacipran HCl [Fetzima] 40 mg PO HS 03/25/16 Multivitamins [Multivit ([facility] Form[facility])] 1 tab PO DAILY tab 03/29/16 Aspirin [Aspirin EC] 81 mg PO DAILY 05/04/16 Diazepam [Valium] 5 mg PO DAILY PRN 10/19/16 Acetaminophen [Tylenol .Regular Strength -] 325 mg PO Q6H PRN 01/24/18 Azithromycin [Zithromax -] 250 mg PO DAILY #4 tab 06/04/19 Sorbitol/Saliva 1/Malic/C.phos [Numoisyn Lozenge] 0.3 gm MM TID PRN #30 lozenge 06/16/19 Nitrofurantoin Monohyd/M-Cryst [Macrobid -] 100 mg PO BID #14 capsule 06/20/19 Phenazopyridine HCl [Pyridium] 200 mg PO TID #5 tablet 06/25/19 Sulfamethoxazole/Trimethoprim [Bactrim Ds -] 1 tab PO DAILY #5 tablet 06/25/19 COPD: No HTN: Yes Hypercholesterolemia: Yes - Psycho Social/Smoking Cessation Hx Smoking History: Never smoked Have you smoked in the past 12 months: No If you are a former smoker, when did you quit?: 1996 Information on smoking cessation initiated: No Hx Alcohol Use: Yes (SOCIAL 7 DRINKS/WEEK) Drug/Substance Use Hx: No Substance Use Type: None Hx Substance Use Treatment: No *Physical Exam - Vital Signs Last Vital Signs Temp Pulse Resp BP Pulse Ox 98.6 F 75 16 157/103 H 97 08/04/19 12:24 08/04/19 12:24 08/04/19 12:24 08/04/19 12:24 08/04/19 12:24 Discharge - Discharge Information Problems reviewed: Yes Clinical Impression/Diagnosis: Animal bite of finger Qualifiers: Encounter type: initial encounter Qualified Code(s): S61.259A - Open bite of unspecified finger without damage to nail, initial encounter Condition: Stable Disposition: HOME - Admission No - Follow up/Referral Referrals: Gadiel Cage MD [Primary Care Provider] - 3 days - Patient Discharge Instructions Patient Printed Discharge Instructions: How to Care for a Wild Animal Bite Additional Instructions: Rest and elevate the hand for the rest of today. Cleaned and dressed daily with bacitracin. Return to ER immediately if there is any sign of infection such as increased pain, swelling, redness, warmth. Otherwise follow-up primary physician in 3 to 5 days. The health department does not recommend rabies treatment for the bite of a mouse. But you may contact the [facility] by phone if you have further questions. - Post Discharge Activity
[2019-08-04 13:23] VITALS: BP 140/90; PULSE 84
== END 2019-08-04 13:28 | disposition home or self-care (01) ==
LOC: FER 12:23
DX: S61.254A Open bite of right ring finger without damage to nail, initial encounter (principal); W53.01XA Bitten by mouse, initial encounter; Y93.89 Activity, other specified; Y92.009 Unspecified place in unspecified non-institutional (private) residence as the place of occurrence of the external cause; Z88.8 Allergy status to other drugs, medicaments and biological substances; I10 Essential (primary) hypertension; Z87.891 Personal history of nicotine dependence; E78.00 Pure hypercholesterolemia, unspecified
CPT/HCPCS: 99282-25

== ENCOUNTER 2019-09-09 21:30 | Emergency (ER) | payer OTHER, MEDICARE ==
[2019-09-09 21:44] VITALS: BP 181/103; PULSE 80; TEMP 98.6; BMI 20.1
[2019-09-09] MEDS ORDERED: LIDOCAINE 2%/EPINEPHRINE 1:100000 (50 ML MD VIAL) INF ONE (21:44)
[2019-09-09] MEDS ORDERED: LIDO 2%/EPI 1:200000 PRESRVFRE (20 ML SDVIAL) ONE (21:45)
--- NOTE | 2019-09-09 23:07 | PDOC ---
Documentation entered by Chapin Bermeo SCRIBE, acting as scribe for Beth Wheat MD. Beth Wheat MD: This documentation has been prepared by the Elvie hernandez Angel, SCRIBE, under my direction and personally reviewed by me in its entirety. I confirm that the documentation accurately reflects all work, treatment, procedures, and medical decision making performed by me. History of Present Illness - General Chief Complaint: Injury Stated Complaint: HEAD/FACE INJURY Time Seen by Provider: 09/09/19 21:33 History Source: Patient Exam Limitations: No Limitations - History of Present Illness Initial Comments: 09/09/19 21:54 The patient is a 79 year old female with a significant past medical history of HTN and HLD who presents to the ED s/p fall (2 hours ago) with a laceration above her right eye. The patient states she was walking in her home when she tripped, hitting her face and right knee. The patient reports no LOC and was able to ambulate after the incident but states she does not recall hitting her right knee. Patient denies any symptoms. Medications: Lexapro and Estradiol Past History - Past Medical History Allergies/Adverse Reactions: Allergies Allergy/AdvReac Type Severity Reaction Status Date / Time aspirin Allergy Intermediate Hives Verified 08/04/19 12:26 Home Medications: Ambulatory Orders Estradiol [Divigel] 0.5 mg TD DAILY 03/25/16 Levomilnacipran HCl [Fetzima] 40 mg PO HS 03/25/16 Multivitamins [Multivit ([facility])] 1 tab PO DAILY tab 03/29/16 Aspirin [Aspirin EC] 81 mg PO DAILY 05/04/16 Diazepam [Valium] 5 mg PO DAILY PRN 10/19/16 Acetaminophen [Tylenol .Regular Strength -] 325 mg PO Q6H PRN 01/24/18 Azithromycin [Zithromax -] 250 mg PO DAILY #4 tab 06/04/19 Sorbitol/Saliva 1/Malic/C.phos [Numoisyn Lozenge] 0.3 gm MM TID PRN #30 lozenge 06/16/19 Nitrofurantoin Monohyd/M-Cryst [Macrobid -] 100 mg PO BID #14 capsule 06/20/19 Phenazopyridine HCl [Pyridium] 200 mg PO TID #5 tablet 06/25/19 Sulfamethoxazole/Trimethoprim [Bactrim Ds -] 1 tab PO DAILY #5 tablet 06/25/19 COPD: No HTN: Yes Hypercholesterolemia: Yes - Psycho Social/Smoking Cessation Hx Smoking History: Never smoked Have you smoked in the past 12 months: No If you are a former smoker, when did you quit?: 1996 Hx Alcohol Use: Yes (SOCIAL 7 DRINKS/WEEK) Drug/Substance Use Hx: No Substance Use Type: None Hx Substance Use Treatment: No Review of Systems - Review of Systems Able to Perform ROS?: Yes Comments:: 09/09/19 21:55 GENERAL/CONSTITUTIONAL: No fever or chills. No weakness. HEAD, EYES, EARS, NOSE AND THROAT: +Laceration above right eye. No change in vision. No ear pain or discharge. No sore throat. CARDIOVASCULAR: No chest pain or shortness of breath. RESPIRATORY: No cough, wheezing, or hemoptysis. GASTROINTESTINAL: No nausea, vomiting, diarrhea or constipation. GENITOURINARY: No dysuria, frequency, or change in urination. MUSCULOSKELETAL: +Right knee pain. No neck or back pain. SKIN: No rash NEUROLOGIC: No headache, vertigo, loss of consciousness, or change in strength/ sensation. ENDOCRINE: No increased thirst. No abnormal weight change. HEMATOLOGIC/LYMPHATIC: No anemia, easy bleeding, or history of blood clots. ALLERGIC/IMMUNOLOGIC: No hives or skin allergy. *Physical Exam - Vital Signs Last Vital Signs Temp Pulse Resp BP Pulse Ox 98.6 F 80 18 181/103 H 100 09/09/19 21:34 09/09/19 21:34 09/09/19 21:34 09/09/19 21:34 09/09/19 21:34 - Physical Exam 09/09/19 21:56 GENERAL: Awake, alert, and fully oriented, in no acute distress HEAD: +Large ecchymosis in the frontal region. No facial bone tenderness. No signs of trauma EYES: +Laceration under right eyebrow 2cm. PERRLA, EOMI, sclera anicteric, conjunctiva clear ENT: Auricles normal inspection, hearing grossly normal, nares patent, oropharynx clear without exudates. Moist mucosa NECK: Normal ROM, supple, no lymphadenopathy, JVD, or masses LUNGS: Breath sounds equal, clear to auscultation bilaterally. No wheezes, and no crackles HEART: Regular rate and rhythm, normal S1 and S2, no murmurs, rubs or gallops ABDOMEN: Soft, nontender, normoactive bowel sounds. No guarding, no rebound. No masses EXTREMITIES: Normal range of motion, no edema. No clubbing or cyanosis. No cords, erythema, or tenderness NEUROLOGICAL: Cranial nerves II through XII grossly intact. Normal speech, normal gait SKIN: Warm, Dry, normal turgor, no rashes or lesions noted. Procedures - Laceration/Wound Repair Right Face Wound Length: to 2.5 cm Wound Explored: clean Wound's Depth, Shape: superficial Irrigated w/ Saline: Yes Betadine Prep: No Anesthesia: 2% Lidocaine w/ Epi Amount of Anesthetic (ccs): 2 Wound Debrided: minimal Wound Repaired With: Sutures Suture Size/Type: 6:0 Number of Sutures: 3 Layer Closure: No Sterile Dressing Applied: Yes Splint Applied: No ED Treatment Course - RADIOLOGY Radiology Studies Ordered: Category Date Time Status CERVICAL SPINE CT W/O CONTR [CT] Stat CT Scan 09/09/19 21:[address] W/O CONTRAST [CT] Stat CT Scan 09/09/19 21:[address] WITHOUT CONTRAST [CT] Stat CT Scan 09/09/19 21:35 Completed - Medications Given in the ED: ED Medications Discontinued Medications Generic Name Dose Route Start Last Admin Trade Name Freq PRN Reason Stop Dose Admin Lidocaine/Epinephrine 10 ml 09/09/19 21:44 09/09/19 22:36 Xylocaine 2%-Epi 1:100,000 INF 09/09/19 21:45 10 ml ONCE ONE Administration Medical Decision Making - Medical Decision Making 09/09/19 23:07 Pt presents to the ED after mechanical trip and fall without LOC, complaining of laceration to the face and paraspinal neck pain. CT head, C spine and facial bones performed to rule out intracranial or cervical spinal injury and are negative. will discharge home with instructions to return to the Ed for worsening symptoms and to follow up with PCP Discharge - Discharge Information Problems reviewed: Yes Clinical Impression/Diagnosis: Laceration of face Qualifiers: Encounter type: initial encounter Qualified Code(s): S01.81XA - Laceration without foreign body of other part of head, initial encounter Head injury Qualifiers: Encounter type: initial encounter Qualified Code(s): S09.90XA - Unspecified injury of head, initial encounter Condition: Good Disposition: HOME - Admission No - Follow up/Referral - Patient Discharge Instructions Patient Printed Discharge Instructions: DI for Laceration Repair, DI for Closed Head Injury Additional Instructions: you came to the ED because you fell. We did a cat scan of the brain, neck and face, which was normal. We used stitches to close the wound on your face. You should return to the ED in 5 days to have the stitches taken out. Follow up with your doctor within three days. Return to the ED immediately for confusion , passing out, seizures, severe headache, persistent nausea or vomiting, other new or worsening symptoms. - Post Discharge Activity
[2019-09-09] MEDS ORDERED: DIPHTH,PERTUSS(ACELL),TET 0.5 ML DISP.SYRIN IM ONE ×2 (23:10→23:13)
== END 2019-09-09 23:19 | disposition home or self-care (01) ==
LOC: FER 21:30
PROC: 0HQ1XZZ Repair Face Skin, External Approach (ICD-10-PCS; principal; 2019-09-09)
DX: S01.81XA Laceration without foreign body of other part of head, initial encounter (principal); S09.90XA Unspecified injury of head, initial encounter; Z88.8 Allergy status to other drugs, medicaments and biological substances; I10 Essential (primary) hypertension; E78.5 Hyperlipidemia, unspecified; W01.0XXA Fall on same level from slipping, tripping and stumbling without subsequent striking against object, initial encounter; Y93.89 Activity, other specified; Y92.410 Unspecified street and highway as the place of occurrence of the external cause
CPT/HCPCS: 12011-25; 70450-TC; 70486-TC; 72125-TC; 90715; 99284-25

== ENCOUNTER 2019-09-15 17:30 | Emergency (ER) | payer OTHER, MEDICARE ==
[2019-09-15 17:38] VITALS: BP 164/104; PULSE 76; TEMP 98.1; BMI 20.1
--- NOTE | 2019-09-15 17:56 | PDOC ---
Suture Removal/Wound Check HPI - History of Present Illness Chief Complaint: Suture/Staple Removal(Here) Stated Complaint: SUTURE REMOVAL Time Seen by Provider: 09/15/19 17:47 - Onset of Previous Treatment Comment:: 09/15/19 17:56 Sutures x3 removed from right eyebrow. Small hematoma is present. Wound is closed. No erythema warmth, drainage, or other sign of infection. Follow-up as necessary. Past History - Past Medical History Allergies/Adverse Reactions: Allergies Allergy/AdvReac Type Severity Reaction Status Date / Time aspirin Allergy Intermediate Hives Verified 09/15/19 17:32 Home Medications: Ambulatory Orders Estradiol [Divigel] 0.5 mg TD DAILY 03/25/16 Levomilnacipran HCl [Fetzima] 40 mg PO HS 03/25/16 Multivitamins [Multivit ([facility] Form[facility])] 1 tab PO DAILY tab 03/29/16 Aspirin [Aspirin EC] 81 mg PO DAILY 05/04/16 Diazepam [Valium] 5 mg PO DAILY PRN 10/19/16 Acetaminophen [Tylenol .Regular Strength -] 325 mg PO Q6H PRN 01/24/18 Azithromycin [Zithromax -] 250 mg PO DAILY #4 tab 06/04/19 Sorbitol/Saliva 1/Malic/C.phos [Numoisyn Lozenge] 0.3 gm MM TID PRN #30 lozenge 06/16/19 Nitrofurantoin Monohyd/M-Cryst [Macrobid -] 100 mg PO BID #14 capsule 06/20/19 Phenazopyridine HCl [Pyridium] 200 mg PO TID #5 tablet 06/25/19 Sulfamethoxazole/Trimethoprim [Bactrim Ds -] 1 tab PO DAILY #5 tablet 06/25/19 COPD: No HTN: Yes Hypercholesterolemia: Yes - Psycho Social/Smoking Cessation Hx Smoking History: Former smoker Have you smoked in the past 12 months: No If you are a former smoker, when did you quit?: 1996 Information on smoking cessation initiated: No Hx Alcohol Use: No Drug/Substance Use Hx: No Substance Use Type: None Hx Substance Use Treatment: No *Physical Exam - Vital Signs Last Vital Signs Temp Pulse Resp BP Pulse Ox 98.1 F 76 17 164/104 H 98 09/15/19 17:32 09/15/19 17:32 09/15/19 17:32 09/15/19 17:32 09/15/19 17:32 Discharge - Discharge Information Problems reviewed: Yes Clinical Impression/Diagnosis: Visit for suture removal Condition: Improved Disposition: HOME - Admission No - Follow up/Referral - Patient Discharge Instructions Patient Printed Discharge Instructions: DI for Suture Removal - Post Discharge Activity
== END 2019-09-15 18:02 | disposition home or self-care (01) ==
LOC: FER 17:30
DX: Z48.02 Encounter for removal of sutures (principal)
CPT/HCPCS: 99281-25

== ENCOUNTER 2020-11-12 19:19 | Emergency (ER) | payer OTHER, MEDICARE ==
[2020-11-12 19:42] VITALS: BP 155/92; PULSE 98; TEMP 99; BMI 19.9
[2020-11-12 20:45] LABS: EOS % 0.2 % (0-4.5); NEUT % 88.4 % (42.8-82.8); WHITE BLOOD COUNT 9.3 K/mm3 (4.0-10.8)
[2020-11-12 20:48] LABS: BASO % 0.4 % (0-2.0); HEMATOCRIT 43.8 % (32.4-45.2); LYMPH % 5.9 % (8-40); MCH 31.6 pg (25.7-33.7); MCHC 34.3 g/dl (32.0-36.0); MEAN CELL VOLUME 92.2 fl (80-96); MEAN PLT VOLUME 7.7 fl (7.5-11.1); MONO % 5.1 % (3.8-10.2); PLATELET COUNT 201 K/MM3 (134-434); RBC 4.75 M/mm3 (3.60-5.2); RDW 12.1 % (11.6-15.6)
[2020-11-12 20:57] LABS: ALBUMIN 4.3 g/dl (3.4-5.0); BILIRUBIN,TOTAL 1.3 mg/dl (0.2-1); CALCIUM 9.2 mg/dl (8.5-10); TOT PROT 7.3 g/dl (6.4-8.2)
[2020-11-12 21:27] LABS: EPITHELIAL CELLS MODERATE /hpf
== END 2020-11-12 21:40 | disposition home or self-care (01) ==
LOC: FER 19:19
DX: R41.82 Altered mental status, unspecified (principal)
CPT/HCPCS: 36415; 70450-TC; 80053; 81003; 81015; 85025; 87086; 99284-25

== ENCOUNTER 2021-04-20 12:09 | Emergency (ER) | payer OTHER, MEDICARE ==
[2021-04-20 12:23] VITALS: BP 150/103; PULSE 103; TEMP 99.1; BMI 19.3
[2021-04-20 13:04] LABS: EPITHELIAL CELLS FEW /hpf
[2021-04-20 13:20] LABS: BASO % 1.3 % (0-2.0); EOS % 0.2 % (0-4.5); HEMATOCRIT 44.9 % (32.4-45.2); LYMPH % 15.2 % (8-40); MCH 30.7 pg (25.7-33.7); MCHC 33.4 g/dl (32.0-36.0); MEAN CELL VOLUME 91.8 fl (80-96); MEAN PLT VOLUME 7.3 fl (7.5-11.1); MONO % 7.9 % (3.8-10.2); NEUT % 75.4 % (42.8-82.8); PLATELET COUNT 244 10^3/uL (134-434); RBC 4.89 M/mm3 (3.60-5.2); RDW 12.8 % (11.6-15.6); WHITE BLOOD COUNT 5.6 K/mm3 (4.0-10.8)
[2021-04-20 13:26] LABS: ALBUMIN 4.3 g/dl (3.4-5.0); ALK PHOS 56 U/L (45-117); ANION GAP 14 MMOL/L (8-16); BILIRUBIN,TOTAL 1.3 mg/dl (0.2-1); CHLORIDE 91 mmol/L (98-107); CO2 26 mmol/L (21-32); CREATININE 0.5 mg/dl (0.55-1.3); GLUCOSE,RANDOM 121 mg/dl (74-106); SGOT/AST 26 U/L (15-37); SGPT/ALT 20 U/L (13-61); SODIUM 131 mmol/L (136-145); TOT PROT 7.3 g/dl (6.4-8.2)
[2021-04-20] MEDS ORDERED: SODIUM CHLORIDE 0.9% 1000 ML INFUS.BAG IV ONE (13:35)
== END 2021-04-20 15:04 | disposition home or self-care (01) ==
LOC: FER 12:09
DX: R41.89 Other symptoms and signs involving cognitive functions and awareness (principal)
CPT/HCPCS: 36415; 70450-TC; 80053; 81003; 81015; 82550; 84484; 85025; 87086; 93005; 93010; 99284-25; C9803; U0003; U0005

== ENCOUNTER 2021-09-08 11:54 | Inpatient (IN) | payer OTHER, MEDICARE ==
[2021-09-08 13:35] LABS: ALBUMIN 4.4 g/dl (3.4-5.0); CALCIUM 9.7 mg/dl (8.5-10); CREATININE 0.6 mg/dl (0.55-1.3); TOT PROT 7.4 g/dl (6.4-8.2)
[2021-09-08 13:38] LABS: EPITHELIAL CELLS RARE /hpf
[2021-09-08] MEDS ORDERED: SODIUM CHLORIDE 0.9% 500 ML INFUS.BAG IV ONE (13:39)
[2021-09-08 14:35] LABS: BASO % 0.1 % (0-2.0); HEMATOCRIT 41.4 % (32.4-45.2); HEMOGLOBIN 14.1 GM/dL (10.7-15.3); LYMPH % 19.4 % (8-40); MCH 30.1 pg (25.7-33.7); MEAN CELL VOLUME 88.4 fl (80-96); MEAN PLT VOLUME 7.3 fl (7.5-11.1); MONO % 7.2 % (3.8-10.2); NEUT % 73.3 % (42.8-82.8); PLATELET COUNT 226 10^3/uL (134-434); RBC 4.68 M/mm3 (3.60-5.2); RDW 13.3 % (11.6-15.6); WHITE BLOOD COUNT 4.8 K/mm3 (4.0-10.0)
[2021-09-08 14:36] LABS: CREATININE, URINE RANDOM 34.1 mg/dL
[2021-09-08] MEDS ORDERED: risperiDONE 0.25 MG TABLET PO PRN (14:56)
[2021-09-08] MEDS ORDERED: ACETAMINOPHEN 325 MG TABLET (FP) PO PRN (15:01)
[2021-09-08] MEDS ORDERED: SODIUM CHLORIDE 1,000 ML IV SCH (15:15)
[2021-09-08 15:47] LABS: SARS AG REFLEX COV19 SEND OUT negative (Negative)
[2021-09-08 17:51] VITALS: BMI 19.7
[2021-09-08 18:39] LABS: CALCIUM 8.8 mg/dl (8.5-10); CREATININE 0.7 mg/dl (0.55-1.3)
[2021-09-08] MEDS ORDERED: risperiDONE 0.5 MG TABLET PO SCH (22:00)
[2021-09-08] MEDS ORDERED: GABAPENTIN 400 MG CAPSULE PO SCH (22:00)
[2021-09-09] MEDS ORDERED: risperiDONE 0.5 MG TABLET PO SCH (07:00)
[2021-09-09 08:49] LABS: ALBUMIN 3.2 g/dl (3.4-5.0); BILIRUBIN,TOTAL 0.7 mg/dl (0.2-1); CALCIUM 8.8 mg/dl (8.5-10); CREATININE 0.7 mg/dl (0.55-1.3); MAGNESIUM 1.8 mg/dL (1.8-2.4); PHOSPHOROUS 3.5 mg/dl (2.5-4.9); TOT PROT 5.6 g/dl (6.4-8.2)
[2021-09-09] MEDS ORDERED: GABAPENTIN 100 MG CAPSULE PO SCH (10:00)
[2021-09-09] MEDS ORDERED: CHOLECALCIFEROL (VIT D3) 1,000 UNIT (25 MCG) TABLET PO SCH (10:00)
[2021-09-09] MEDS ORDERED: ENOXAPARIN NA (PORCINE) 40 MG/0.4 ML DISP.SYRIN SQ SCH (10:00)
[2021-09-09] MEDS ORDERED: UBIQUINOL 100 MG PO SCH (10:00)
[2021-09-09] MEDS ORDERED: CALCIUM (OYSTER SHELL) 500 MG TABLET (FP) PO SCH (10:00)
[2021-09-09 12:01] VITALS: BP 128/66; PULSE 94; TEMP 98
[2021-09-09 12:54] LABS: BASO % 0.8 % (0-2.0); EOS % 0.9 % (0-4.5); HEMATOCRIT 36.6 % (32.4-45.2); HEMOGLOBIN 12.6 GM/dL (10.7-15.3); LYMPH % 33.1 % (8-40); MCH 30.8 pg (25.7-33.7); MCHC 34.4 g/dl (32.0-36.0); MEAN CELL VOLUME 89.4 fl (80-96); MEAN PLT VOLUME 7.6 fl (7.5-11.1); MONO % 11.3 % (3.8-10.2); NEUT % 53.9 % (42.8-82.8); PLATELET COUNT 200 10^3/uL (134-434); RBC 4.09 M/mm3 (3.60-5.2); RDW 13.5 % (11.6-15.6); WHITE BLOOD COUNT 4.2 K/mm3 (4.0-10.0)
[2021-09-09 13:07] LABS: SARS-CoV-2 NAA Not Detected (Not Detected)
[2021-09-10] MEDS ORDERED: POLYETHYLENE GLYCOL (HEALTHYLAX) 3350 17 GM PACKET PO SCH (10:00)
== END 2021-09-09 12:25 | disposition home or self-care (01) | DRG 880 ==
LOC: FER 11:54 → FM/S 14:35
PROVIDERS: ADMIT Internal Medicine; ATTEND Nurse Practitioner Family
DX: F05 Delirium due to known physiological condition (principal); E87.1 Hypo-osmolality and hyponatremia; F03.90 Unspecified dementia, unspecified severity, without behavioral disturbance, psychotic disturbance, mood disturbance, and anxiety; I10 Essential (primary) hypertension; E78.5 Hyperlipidemia, unspecified; E86.0 Dehydration
CPT/HCPCS: 36415; 70450-TC; 71045-TC-FY; 80048; 80053; 81003; 81015; 82570; 83735; 83930; 83935; 84100; 84300; 85025; 87086; 87426; 93005; 99285-25; C9803; U0003; U0005

== ENCOUNTER 2023-12-04 18:56 | Observation (INO) | payer OTHER, MEDICARE ==
[2023-12-04 20:00] LABS: HEMATOCRIT 44.1 % (32.4-45.2); HEMOGLOBIN 14.6 G/dL (10.7-15.3); MCHC 33.1 g/dl (32.0-36.0); MEAN CELL VOLUME 90.8 fl (80-96); MEAN PLT VOLUME 8.4 fl (7.5-11.1); PLATELET COUNT 149.2 10^3/uL (134-434); RBC 4.86 10^6/uL (3.60-5.2); RDW 13.6 % (11.6-15.6); WHITE BLOOD COUNT 6.6 10^3/uL (4.0-10.8)
[2023-12-04 20:16] LABS: ALBUMIN 4.2 g/dl (3.4-5.0); BILIRUBIN,TOTAL 0.7 mg/dl (0.2-1); CALCIUM 9.2 mg/dl (8.5-10.1); CREATININE 0.7 mg/dl (0.6-1.3); PLATELET ESTIMATE ADEQUATE; POTASSIUM 4.1 mmol/L (3.5-5.1); TOT PROT 6.5 g/dl (6.4-8.2)
[2023-12-04] MEDS ORDERED: ACETAMINOPHEN INJECTION 100 ML IVPB ONE (20:24)
[2023-12-04] MEDS: ACETAMINOPHEN 1000 MG/100 ML BAG IVPB ONE (20:45)
[2023-12-04] MEDS: CEFTRIAXONE 1,000 MG in DEXTROSE 5%-WATER - 50 ML IVPB ONE (22:08)
[2023-12-04] MEDS ORDERED: cefTRIAXone SODIUM 1 GM VIAL ONE (22:09)
[2023-12-05 00:27] VITALS: BMI 36.2
[2023-12-05] MEDS ORDERED: ACETAMINOPHEN 325 MG TABLET (FP) PO PRN (03:00)
[2023-12-05 09:19] LABS: ANION GAP 9 mmol/L (4-13); CALCIUM 8.7 mg/dl (8.5-10.1); CHLORIDE 102 mmol/L (98-107); CO2 25 mmol/L (21-32); CREATININE 0.5 mg/dl (0.6-1.3); GLUCOSE,RANDOM 88 mg/dl (74-106); POTASSIUM 3.7 mmol/L (3.5-5.1); SODIUM 136 mmol/L (136-145)
[2023-12-05] MEDS: CEFTRIAXONE 1 GM in DEXTROSE 5%-WATER - 50 ML IVPB SCH (10:19)
[2023-12-05 11:09] VITALS: RESP 18
[2023-12-05 13:40] LABS: BASO % 0.7 % (0-2.0); EOS % 0.1 % (0-4.5); HEMOGLOBIN 12.9 GM/dL (10.7-15.3); LYMPH % 15.2 % (8-40); MCH 30.1 pg (25.7-33.7); MCHC 33.9 g/dl (32.0-36.0); MEAN CELL VOLUME 88.7 fl (80-96); MEAN PLT VOLUME 10.1 fl (7.5-11.1); MONO % 12.6 % (3.8-10.2); NEUT % 71.4 % (42.8-82.8); PLATELET COUNT 89 10^3/uL (134-434); RBC 4.29 M/mm3 (3.60-5.2); RDW 13.6 % (11.6-15.6)
[2023-12-05 15:00] VITALS: BP 122/68; PULSE 78; TEMP 96.7
[2023-12-05] MEDS ORDERED: REMDESIVIR 200 MG in SODIUM CHLORIDE 250 ML IVPB ONE (18:31)
[2023-12-05] MEDS ORDERED: ATORVASTATIN CA 20 MG TABLET (FP) PO SCH (22:00)
== END 2023-12-05 18:53 | disposition home or self-care (01) ==
LOC: FER 18:56 → FM/S 23:49 → UNDOADMOB 23:49
PROVIDERS: ADMIT Internal Medicine
PROC: 3E03329 Introduction of Other Anti-infective into Peripheral Vein, Percutaneous Approach (ICD-10-PCS; principal; 2023-12-04)
PROC: 3E033NZ Introduction of Analgesics, Hypnotics, Sedatives into Peripheral Vein, Percutaneous Approach (ICD-10-PCS; 2023-12-04)
DX: U07.1 COVID-19 (principal); N39.0 Urinary tract infection, site not specified; F99 Mental disorder, not otherwise specified; R63.30 Feeding difficulties, unspecified; F03.90 Unspecified dementia, unspecified severity, without behavioral disturbance, psychotic disturbance, mood disturbance, and anxiety; I10 Essential (primary) hypertension; E78.5 Hyperlipidemia, unspecified; E78.00 Pure hypercholesterolemia, unspecified; Z96.649 Presence of unspecified artificial hip joint; Z88.8 Allergy status to other drugs, medicaments and biological substances
CPT/HCPCS: 0241U-QW; 36415; 70450-TC; 71045-TC-FY; 80048; 80053; 81003; 81015; 83605; 84484; 85025; 85027; 87040; 87086; 93005; 96365; 96366; 96375; 99285-25; G0378; J0131